=== PATIENT | female | born 1965 | race Caucasian/White ===

== ENCOUNTER 2016-07-10 06:21 | Emergency (ER) | payer BC ==
[2016-07-10 06:58] VITALS: BP 121/92
== END 2016-07-10 06:58 | disposition home or self-care (01) ==
LOC: ED 06:21
DX: T78.3XXA Angioneurotic edema, initial encounter (principal); Y92.89 Other specified places as the place of occurrence of the external cause

== ENCOUNTER 2016-07-22 20:35 | Emergency (ER) | payer BC ==
[2016-07-22 22:01] VITALS: BP 136/91
== END 2016-07-22 22:01 | disposition home or self-care (01) ==
LOC: ED 20:35
DX: T78.40XA Allergy, unspecified, initial encounter (principal); R22.0 Localized swelling, mass and lump, head; I10 Essential (primary) hypertension; X58.XXXA Exposure to other specified factors, initial encounter
CPT/HCPCS: J0171; J1200; J2930